=== PATIENT | male | born 1980 | race Caucasian/White ===

== ENCOUNTER 2017-09-06 16:16 | Inpatient (IN) | payer BC ==
--- NOTE | 2017-09-06 16:21 | PDOC ---
Attending Attestation - HPI HPI: 09/06/17 17:53 CC: sudden onset of AFIB today The patient is a 36 year old male with a significant past medical history of anxiety and disc herniation (C6,C7), who presents for evaluation of heart racing sensation today about 2 hours prior to ED arrival. The patient reports receiving a hydrocortisone injection yesterday to his cervical region. He states he developed a heart racing sensation prior to the injection, which "settled down" prior to receiving the injection. He states he developed the sensation of a racing heart rate suddenly earlier this afternoon, waited an hour , and returned to [facility] where he was found to be in "AFib and RVR to the 160s ". He reports having a noral echo and stress test about a year ago at [facility]. He states he has a female doctor at [facility], but can not recall her name and states he has not seen her "in a while". He denies Fevers, chills, SOB, chest pain, nausea, vomiting, abdominal pain, or changes with urination or bowel movements. - Physicial Exam PE: 09/06/17 17:58 ROS: A complete review of 10 out of 10 review of systems is taken and is negative apart from what is previously mentioned in the HPI. Physical Exam Vitals: Triage vital signs reviewed General Appearance: No acute distress, well nourished, well developed Head: Atraumatic Eyes: Pupils equal reactive round, extraocular movement intact Neck: Supple; No nuchal rigidity Chest Wall: Nontender Cardiac: (+) irregularly irregular, no murmurs, no rubs, no gallops Lungs: Clear to auscultation bilateral, good air movement bilaterally Abdomen: Soft, nondistended, normal bowel sounds, nontender to palpation Rectal: Exam deferred Extremities: Full range of motion to all extremities, no cyanosis, clubbing, or edema Skin: Warm and dry, no rashes or lesions, no rash, no petechiae Neuro: AOX3; Cranial Nerves 2-12 grossly intact, Strength intact to all extremities, Sensation intact to all extremities, gait normal Psych: Normal mood, normal affect - Medical Decision Making 09/06/17 18:06 The patient is a 36 year old male with a significant past medical history of anxiety and herniation of C6C7 who presents with sudden onset of AFib today at [facility]. Plan: EKG, CXR, medications, reassess 09/06/17 17:47 Dr. Gomez was called via phone answering service. I have been made aware Dr. Melendez is covering Dr. Gomez and a page was sent requesting a call back for doctor to doctor consult. 09/06/17 18:21 Dr. Melendez, covering for Dr. Gomez was paged a 2nd time requesting a call back for doctor to doctor consult. 09/06/17 18:28 Dr. Melendez returned the call and discussed the case with Dr. Grigsby. Documentation prepared by Eli Sommer, acting as certified medical coder for Alpesh Burks MD, <Eli Sommer - Last Filed: 09/06/17 20:03> - Resident Resident Name: Ming Grigsby - ED Attending Attestation I have performed the following: I have examined & evaluated the patient, The case was reviewed & discussed with the resident, I agree w/resident's findings & plan, Exceptions are as noted - Critical Care Time Total Critical Care Time: 35 Critical Care Statement: The care of this patient involved high complexity decision making to prevent further life threatening deterioration of the patient 's condition and/or to evaluate & treat vital organ system(s) failure or risk of failure. - Medical Decision Making EKG demonstrates A. fib with RVR T-wave inversions inferior laterally 37 no past medical history new-onset A. fib started approximately 2 hours prior to arrival. Patient felt palpitations. Treated with IV diltiazem 20mg and 30mg PO Cardizem now currently rate controlled but still in atrial fibrillation. Case discussed with cardiology we' ll treat with aspirin admitt overnight for further management. A portion of this note was documented by scribe services under my direction I reviewed the details of note within reason and agree with the documentation with the following case summary and management plan written by me 09/06/17 23:44 <Alpesh Burks - Last Filed: 09/06/17 23:44> Heart Score/ECG Review - ECG Intrepretation Comment:: 09/06/17 20:04 EKG performed at 16:26 demonstrates rate of 150bpm, rhythm of Afib, axis equal to normal. Additional findings include: consider inferior ischemia, T wave inversions laterally, No ST elevations. <Eli Sommer - Last Filed: 09/06/17 20:03>
[2017-09-06] MEDS ORDERED: dilTIAZem HCL 30 MG TABLET (FP) PO ONE (16:31)
[2017-09-06] MEDS ORDERED: dilTIAZem HCL 50 MG/10 ML - 10 ML VIAL IVPUSH ONE (16:31)
[2017-09-06] MEDS ORDERED: dilTIAZem HCL 30 MG TABLET (FP) ONE (16:49)
[2017-09-06] MEDS ORDERED: dilTIAZem HCL 125 MG/25 ML - 25 ML VIAL ONE (16:50)
--- NOTE | 2017-09-06 16:51 | PDOC ---
History of Present Illness - General Chief Complaint: Palpitations Stated Complaint: RAPID HEART RATE Time Seen by Provider: 09/06/17 16:18 - History of Present Illness Initial Comments: 09/06/17 16:46 The patient is a 36 year old male with a history of anxiety and disc herniation who presents for evaluation of palpitations and rapid heart rate. The patient reports that he was received a hydrocortisone injection 1 day ago and then began experiencing the sensation of a racing heart rate earlier this morning. He initially presented to [facility] where he had his injection performed and was found to be in afib with RVR with a HR in 160s prompting his presentation to the ED today. He denies Fevers, chills, SOB, chest pain, nausea, vomiting, abdominal pain, or changes with urination or bowel movements. Past History - Past Medical History Allergies/Adverse Reactions: Allergies Allergy/AdvReac Type Severity Reaction Status Date / Time No Known Allergies Allergy Verified 09/06/17 16:35 Home Medications: Ambulatory Orders Gabapentin 300 mg PO TID 09/06/17 COPD: No Psychiatric Problems: No Other medical history: c7 herniated disc - Suicide/Smoking/Psychosocial Hx Smoking History: Current some day smoker Have you smoked in the past 12 months: Yes Number of Cigarettes Smoked Daily: 2 If you are a former smoker, when did you quit?: SMOKES WHEN DRINKS Information on smoking cessation initiated: No 'Breaking Loose' booklet given: 04/20/16 Hx Alcohol Use: No Drug/Substance Use Hx: No Substance Use Type: Alcohol Review of Systems - Review of Systems Comments:: 09/06/17 16:48 Constitutional: No fevers, chills, fatigue, malaise HEENT: No Rhinorrhea, nasal congestion, visual changes Cardiovascular: Palpitations. No chest pain, syncope, lightheadedness Respiratory: No Cough, SOB, Hemoptysis, Gastrointestinal: No Abdominal pain, Nausea, Vomiting, Constipation, Diarrhea, Melena Genitourinary: No Dysuria, Frequency, Urgency, Hesitancy, Hematuria, Flank pain Musculoskeletal: No Myalgia, arthralgia Skin: No rashes, itching, bruising, pallor Neurologic: No Headache, Dizziness, Numbness, Weakness, or Tingling Psychiatric: No Hallucinations. No SI or HI *Physical Exam - Vital Signs Last Vital Signs Temp Pulse Resp BP Pulse Ox 98.0 F 150 H 18 148/91 100 09/06/17 16:23 09/06/17 16:23 09/06/17 16:23 09/06/17 16:23 09/06/17 16:23 - Physical Exam Comments: 09/06/17 16:49 General Appearance: Nourished. No Apparent Distress HEENT: EOMI, HARJEET. No Pharyngeal Erythema, Tonsillar Exudate, Tonsillar Erythema Neck: No Cervical Lymphadenopathy Respiratory/Chest: Lungs Clear, Normal Breath Sounds. No Crackles, Rales, Rhonchi, Wheezing Cardiovascular: Tachycardic and irregularly irregular. No Murmur, Gallops, Rubs Gastrointestinal/Abdominal: Normal Bowel Sounds, Soft. No Guarding, Rebound, Tenderness Musculoskeletal: No CVA Tenderness Extremity: Normal Capillary Refill Integumentary: Normal Color, Dry, Warm Neurologic: Fully Oriented, Alert, Normal Mood/Affect, Normal Response, Heart Score/ECG Review #1 ECG reviewed & interpreted by me at: 16:50 (Afib with RVR with a HR of 150. T- wave inversions in the inferior lateral leads) General ECG Interpretation: Normal Intervals, No acute ischemic changes #2 ECG reviewed & interpreted by me at: 18:05 (Afib with a HR of 100) General ECG Interpretation: Normal Intervals, No acute ischemic changes ED Treatment Course - LABORATORY CBC & Chemistry Diagram: 09/06/17 16:49 09/06/17 16:49 - RADIOLOGY Radiology Studies Ordered: Category Date Time Status CHEST X-RAY PORTABLE* [RAD] Stat Radiology 09/06/17 16:30 Taken Medical Decision Making - Medical Decision Making 09/06/17 16:51 The patient is a 36 year old male with a history of anxiety and disc herniation who presents for evaluation of palpitations and rapid heart rate. Given the patient's EKG here in the ed and physical exam, it is likely the patient's symptoms are due to afib with RVR. We will obtain a cbc, cmp, tsh, troponin, chest plain film, coags to evaluate for possible etiologies that put the patient into afib with RVR. In the meantime we will treat the patient with 30mg PO cardizem, and 20mg of IV cardizem. We will continue to monitor and reassess. 09/06/17 18:22 CBC, cmp, troponin, coags are unremarkable. Chest plain film is unremarkable. The patient's rate is now 90s after medications however still in afib. The patient will require admission for further management of his condition given his new onset afib that remains persistent. We discussed the results and the plan with the patient who voiced understanding and is agreeable with the plan. *DC/Admit/Observation/Transfer Diagnosis at time of Disposition: Palpitations, Atrial fibrillation with RVR - Discharge Dispostion Condition at time of disposition: Stable Admit: Yes - Referrals - Patient Instructions - Post Discharge Activity
[2017-09-06 17:02] LABS: BASO % 0.6 % (0-2.0); EOS % 0.3 % (0-4.5); HEMATOCRIT 44.8 % (35.4-49); HEMOGLOBIN 15.4 GM/dL (11.7-16.9); LYMPH % 29.9 % (8-40); MCH 31.5 pg (25.7-33.7); MCHC 34.4 g/dl (32.0-35.9); MEAN CELL VOLUME 91.6 fl (80-96); MEAN PLT VOLUME 8.8 fl (7.5-11.1); MONO % 10.4 % (3.8-10.2); NEUT % 58.8 % (42.8-82.8); PLATELET COUNT 238 K/MM3 (134-434); RBC 4.89 M/mm3 (4.00-5.60); RDW 12.5 % (11.9-15.9); WHITE BLOOD COUNT 10.8 K/mm3 (4.0-10.0)
[2017-09-06 17:31] LABS: ALBUMIN 4.3 g/dl (3.4-5.0); ANION GAP 7 (8-16); BILIRUBIN,TOTAL 0.4 mg/dL (0.2-1.0); BLOOD UREA NITROGEN 13 mg/dL (7-18); CALCIUM 8.6 mg/dL (8.5-10.1); CHLORIDE 106 mmol/L (98-107); CO2 28 mmol/L (21-32); CREATININE 0.9 mg/dL (0.7-1.3); GLUCOSE,RANDOM 86 mg/dL (74-106); POTASSIUM 3.7 mmol/L (3.5-5.1); SGOT/AST 17 U/L (15-37); SGPT/ALT 26 U/L (12-78); SODIUM 141 mmol/L (136-145); TOT PROT 7.2 g/dl (6.4-8.2)
[2017-09-06 17:39] LABS: ALK PHOS 71 U/L (45-117)
[2017-09-06 17:47] LABS: INR 0.94 (0.82-1.09); PROTHROMBIN TIME (PATIENT) 10.6 SEC (9.98-11.88)
[2017-09-06 17:50] LABS: ACTIVATED PTT 28.6 SECONDS (26.9-34.4)
[2017-09-06] MEDS ORDERED: ASPIRIN 325 MG ENTERIC COATED TABLET (FP) PO ONE (18:05)
[2017-09-06] MEDS ORDERED: ASPIRIN 325 MG TABLET ONE (18:18)
--- NOTE | 2017-09-06 19:00 | PN ---
Teaching Attending Note Name of Resident: Agnieszka Rojo ATTENDING PHYSICIAN STATEMENT I saw and evaluated the patient. I reviewed the resident's note and discussed the case with the resident. I agree with the resident's findings and plan as documented. SUBJECTIVE: 36 M with pmhx. of anxiety and disc herniation who presents with rapid heart rate. State she felt his heart racing, this am. States he went to [facility] (due tohim having a Cortisone injection there one vincent go,) there they found him to have a heart rate of 160. States he was told to present to ED. Denies any chest pain, pressure or shortness of breath. No N,V,D. No headaches, dizziness, or lightheadedness. OBJECTIVE: Physical: VS: Vital Signs Period Temp Pulse Resp BP Sys/[place] Pulse Ox Last 24 Hr 98.0 F 150 18 148/91 100 GEN: NAD, Resting in bed, AAoX3 HEENT: NCAT, PERRL, throat without erythema or exudates CARD: RRR S1, S2 RESP: CTAB ABD: BSx4, NTD to palpation EXT: - C/C/E CBCD WBC 10.8 K/mm3 (4.0-10.0) H 09/06/17 16:49 RBC 4.89 M/mm3 (4.00-5.60) 09/06/17 16:49 Hgb 15.4 GM/dL (11.7-16.9) 09/06/17 16:49 Hct 44.8 % (35.4-49) 09/06/17 16:49 MCV 91.6 fl (80-96) 09/06/17 16:49 MCHC 34.4 g/dl (32.0-35.9) 09/06/17 16:49 RDW 12.5 % (11.9-15.9) 09/06/17 16:49 Plt Count 238 K/MM3 (134-434) D 09/06/17 16:49 MPV 8.8 fl (7.5-11.1) 09/06/17 16:49 CMP Sodium 141 mmol/L (136-145) 09/06/17 16:49 Potassium 3.7 mmol/L (3.5-5.1) 09/06/17 16:49 Chloride 106 mmol/L (98-107) 09/06/17 16:49 Carbon Dioxide 28 mmol/L (21-32) 09/06/17 16:49 Anion Gap 7 (8-16) L 09/06/17 16:49 BUN 13 mg/dL (7-18) 09/06/17 16:49 Creatinine 0.9 mg/dL (0.7-1.3) 09/06/17 16:49 Creat Clearance w eGFR > 60 (>60) 09/06/17 16:49 Random Glucose 86 mg/dL (74-106) 09/06/17 16:49 Calcium 8.6 mg/dL (8.5-10.1) 09/06/17 16:49 Total Bilirubin 0.4 mg/dL (0.2-1.0) 09/06/17 16:49 AST 17 U/L (15-37) 09/06/17 16:49 ALT 26 U/L (12-78) 09/06/17 16:49 Alkaline Phosphatase 71 U/L (45-117) 09/06/17 16:49 Total Protein 7.2 g/dl (6.4-8.2) 09/06/17 16:49 Albumin 4.3 g/dl (3.4-5.0) 09/06/17 16:49 CARDIAC ENZYMES Creatine Kinase 75 IU/L (39-308) 09/06/17 16:49 Troponin I < 0.02 ng/ml (0.00-0.05) 09/06/17 16:49 CXR- No Acute Process ASSESSMENT AND PLAN: 36 M with pmhx. of anxiety and disc herniation who presents with rapid heart rate, being admitted for A-Fib w RVR 1.) A-Fib w RVR - Trend Trop/Ekg - Echo - C/W Cardizem - [id number] - Cardio on Consult - Check. TSH 2.) Hx. Of Cocaine use - Utox - Avoid BB 3.) DVt Ppx - Heparin [address]
--- NOTE | 2017-09-06 19:34 | HP ---
CHIEF COMPLAINT: Palpitations and rapid heart rate x 2 days PCP: Dr Rory Napoles-for epidural injection Dr Janae Couch- Neurol [facility] Cardiol- [facility]- Name unknown HISTORY OF PRESENT ILLNESS: The Pt is a 36 M with PMHx of disc herniation (C6, C7, lumbar prolapse) presenting with a hx of palpitations and rapid RVR x 2 days. Pt noted palpitations yesterday while receiving hydrocort epidural injection for the disc herniation. The palpitations started after injection of the needle, prior to the medication being given. Patient was able to relax by breathing slowly after which he proceeded to receive the medication. He noted some lightheadedness, but no seizures, no headaches, no convulsions and no weakness of any part of his body. He had a snack right after the episode, since he did not have breakfast, but did not note any diaphoresis, chest pain or tremors. No leg swelling, weight gain or SOB. Today, prior to his ingestion of coffee, pt had another episode of palpitations. He called [facility], was asked to come in, had an EKG done that showed afib with RVR on EKG today-HR- 150/min and was BIBEMS to [facility]. Patient noted irregular heart rate in the past, but no fast heart beat about 2 years ago, for which he saw a cane flume watchman and had an out pt stress test and ECHO done that did not show any abnormality - per pt but has not followed up since. Patient denies any past medical hx including hypertension or diagnosed anxiety disorder and said he snorted cocaine in the past, last use 2015. Previous [facility] records document elevated blood pressure. He says he drinks alcohol (wine ) socially over weekends and also smokes socially 5 cigs/week. No fevers, cough, change in urinary or bowel habits. While at the ER today, he received 30mg PO of cardizem and 20mg Iv of cardizem and with rate control down to 90/min. ER course was notable for: (1) ASA 325, 30mg PO of cardizem and 20mg Iv of cardizem (2)EKG 08/06/17 (4.26pm)- Afib w/RVR, consider inferior ischemia, RR-150/min, QTc -470 (3)EKG 08/06/17 (5.59pm)- Afib , HR-100/min, Nonspecific ST and T wave abnormality (4) CBC, CMP, TSH-1.73, PT/INR, Trops <0.02 (5) CXR- No acute process Recent Travel: No PAST MEDICAL HISTORY: disc herniation PAST SURGICAL HISTORY: None Social History: Smokin cigs/week X 10 years Alcohol:3-4 glasses of wine/week Drugs: marijuana (last use 1.5yrs ago); Cocaine (2 years ago) Family History: Sister-alcoholic with lupus from sepsis (2013) Father- Manic-depressive- committed suicide (2001) Mother- Left him when he was 5yrs old, heard when he was 12yrs old that she of HIV Allergies No Known Allergies Allergy (Verified 09/06/17 16:35) HOME MEDICATIONS: Home Medications Medication Instructions Recorded Gabapentin 300 mg PO TID 09/06/17 REVIEW OF SYSTEMS CONSTITUTIONAL: Absent: fever, chills, diaphoresis, generalized weakness, malaise, loss of appetite, weight change HEENT: Absent: rhinorrhea, nasal congestion, throat pain, throat swelling, difficulty swallowing, mouth swelling, ear pain, eye pain, visual changes CARDIOVASCULAR: palpitations+, irregular heart rate+, lightheadedness+, Absent: chest pain, syncope, peripheral edema RESPIRATORY: Absent: cough, shortness of breath, dyspnea with exertion, orthopnea, wheezing, stridor, hemoptysis GASTROINTESTINAL: Absent: abdominal pain, abdominal distension, nausea, vomiting, diarrhea, constipation, melena, hematochezia GENITOURINARY: Absent: dysuria, frequency, urgency, hesitancy, hematuria, flank pain, genital pain MUSCULOSKELETAL: Absent: myalgia, arthralgia, joint swelling, back pain, neck pain SKIN: Absent: rash, itching, pallor HEMATOLOGIC/IMMUNOLOGIC: Absent: easy bleeding, easy bruising, lymphadenopathy, frequent infections ENDOCRINE: Absent: unexplained weight gain, unexplained weight loss, heat intolerance, cold intolerance NEUROLOGIC: Absent: headache, focal weakness or paresthesias, dizziness, unsteady gait, seizure, mental status changes, bladder or bowel incontinence PSYCHIATRIC: Absent: anxiety, depression, suicidal or homicidal ideation, hallucinations. PHYSICAL EXAMINATION Vital Signs - 24 hr 09/06/17 16:23 Temperature 98.0 F Pulse Rate 150 H Respiratory 18 Rate Blood Pressure 148/91 O2 Sat by Pulse 100 Oximetry (%) Vital Signs Temp 98.0 F 09/06/17 16:23 Pulse 105 H 09/06/17 20:24 Resp 18 09/06/17 20:24 BP 131/74 09/06/17 20:24 Pulse Ox 99 09/06/17 20:24 Intake & Output 09/05/17 09/06/17 09/06/17 23:59 11:59 23:59 Weight 99.79 kg Other: Height 1.88 m Body Mass Index (BMI) 28.2 GENERAL: Awake, alert, and fully oriented, in no acute respiratory distress. HEAD: Normal with no signs of trauma. EYES: Pupils equal, round and reactive to light, extraocular movements intact, sclera anicteric, conjunctiva clear. EARS, NOSE, THROAT: Ears normal, nares patent, oropharynx clear without exudates. Moist mucous membranes. NECK: Normal range of motion, supple without lymphadenopathy, or JVD. LUNGS: Breath sounds equal, clear to auscultation bilaterally. No wheezes, and no crackles. HEART: Irregular rhythm, S1 and S2 without murmur, rub or gallop. ABDOMEN: Soft, nontender, not distended, normoactive bowel sounds, no guarding, no rebound, no masses. No hepatomegaly or splenomegaly. MUSCULOSKELETAL: Normal range of motion at all joints. No bony deformities or tenderness. No CVA tenderness. UPPER EXTREMITIES: 2+ pulses, warm, well-perfused. No cyanosis. No clubbing. No peripheral edema. LOWER EXTREMITIES: 2+ pulses, warm, well-perfused. No calf tenderness. No peripheral edema. NEUROLOGICAL: No facial droop, no tremors. Normal speech. Gait not observed PSYCHIATRIC: Cooperative. Good eye contact. Appropriate mood and affect. Laboratory Results - last 24 hr 09/06/17 09/06/17 09/06/17 16:49 16:49 17:20 WBC 10.8 H RBC 4.89 Hgb 15.4 Hct 44.8 MCV 91.6 MCH 31.5 MCHC 34.4 RDW 12.5 Plt Count 238 D MPV 8.8 Neutrophils % 58.8 Lymphocytes % 29.9 D Monocytes % 10.4 H Eosinophils % 0.3 Basophils % 0.6 PT with INR 10.60 INR 0.94 PTT (Actin FS) 28.6 Sodium 141 Potassium 3.7 Chloride 106 Carbon Dioxide 28 Anion Gap 7 L BUN 13 Creatinine 0.9 Creat Clearance w eGFR > 60 Random Glucose 86 Calcium 8.6 Total Bilirubin 0.4 AST 17 ALT 26 Alkaline Phosphatase 71 Creatine Kinase 75 Troponin I < 0.02 Total Protein 7.2 Albumin 4.3 TSH 1.73 ASSESSMENT/PLAN: Pt is a 36 M with PMHx of disc herniation (C6, C7, lumbar prolapse) presenting with a hx of palpitations and rapid RVR x 2 days found to have Afib w/RVR, RR- 150/min, QTc-470 on presentation. Paroxysmal Afib with RVR R/O persistent afib: Could be metabolic (due to stress) Previous hx of irregular HR- cane flume watchman unknown, To retrieve Out px records if possible Rate controlled with 30mg PO of cardizem and 20mg Iv of cardizem No evidence of haemodynamic instbility at this time [id number] Score- 1 (based on hospital records of HTN) ASA 81 mg daily Continue Diltiazem 30mg Q6H PO Avoid Beta blockers for now with hx of cocaine use in past Utox TSH- 1.73 Trops <0.02 Repeat trops EKG in am ECHO Cardiology consult- Dr Melendez Cardiac monitoring Mg -1.9 CMP- replete lytes as needed HTN: Monitor on Cardizem Disc herniation: Resume Gabapentin 300mg tid FEN: Oral fluids as tolerated Monitor lytes and replete as needed Low sodium diet Prophylaxis: Heparin SQ 5000iu tids Dispo: Tele Visit type - Emergency Visit Emergency Visit: Yes ED Registration Date: 09/06/17 Care time: The patient presented to the Emergency Department on the above date and was hospitalized for further evaluation of their emergent condition. - New Patient This patient is new to me today: Yes Date on this admission: 09/07/17 - Critical Care Critical Care patient: No
[2017-09-06] MEDS ORDERED: GABAPENTIN 300 MG CAPSULE (FP) PO ONE (19:47)
[2017-09-06] MEDS ORDERED: GABAPENTIN 100 MG CAPSULE (FP) ONE (20:25)
[2017-09-06] MEDS: GABAPENTIN 300 MG CAPSULE (FP) PO SCH (22:51)
[2017-09-07] MEDS: dilTIAZem HCL 30 MG TABLET (FP) PO SCH ×2 (00:24→06:37)
[2017-09-07] MEDS ORDERED: HEPARIN NA (PORCINE) 5,000 UNITS/ML 1ML VIAL SQ SCH ×2 (06:00)
[2017-09-07] MEDS: GABAPENTIN 300 MG CAPSULE (FP) PO SCH ×3 (06:37→22:26)
[2017-09-07 07:55] LABS: BASO % 0.6 % (0-2.0); EOS % 1.2 % (0-4.5); HEMATOCRIT 46.1 % (35.4-49); HEMOGLOBIN 15.7 GM/dL (11.7-16.9); LYMPH % 45.3 % (8-40); MCH 31.1 pg (25.7-33.7); MEAN CELL VOLUME 91.5 fl (80-96); MONO % 8.7 % (3.8-10.2); NEUT % 44.2 % (42.8-82.8); PLATELET COUNT 224 K/MM3 (134-434); RBC 5.04 M/mm3 (4.00-5.60); RDW 12.2 % (11.9-15.9); WHITE BLOOD COUNT 9.8 K/mm3 (4.0-10.0)
[2017-09-07 08:14] LABS: INR 0.96 (0.82-1.09); PROTHROMBIN TIME (PATIENT) 10.8 SEC (9.98-11.88)
[2017-09-07 08:23] LABS: ANION GAP 7 (8-16); BLOOD UREA NITROGEN 15 mg/dL (7-18); CALCIUM 8.6 mg/dL (8.5-10.1); CHLORIDE 105 mmol/L (98-107); CO2 29 mmol/L (21-32); CREATININE 0.9 mg/dL (0.7-1.3); GLUCOSE,RANDOM 86 mg/dL (74-106); PHOSPHOROUS 4.3 mg/dL (2.5-4.9); SGOT/AST 16 U/L (15-37); SGPT/ALT 29 U/L (12-78); SODIUM 141 mmol/L (136-145)
[2017-09-07 08:27] LABS: ALK PHOS 61 U/L (45-117); BILIRUBIN,TOTAL 0.5 mg/dL (0.2-1.0); TOT PROT 6.8 g/dl (6.4-8.2)
[2017-09-07] MEDS: ASPIRIN COATED 81 MG TABLET.EC PO SCH (09:32)
[2017-09-07] MEDS ORDERED: dilTIAZem HCL 50 MG/10 ML - 10 ML VIAL IVPUSH ONE (09:33)
--- NOTE | 2017-09-07 09:35 | CON.CARD ---
Consult Consult Specialty:: Cardiology Referred by:: Hospitalist Reason for Consultation:: Afib with RVR - History of Present Illness Chief Complaint: palpitations, sent in for afib History of Present Illness: 36 year old man with spinal disc disease, had C/T spine injection 2 days ago, developed palpitations not feeling well yesterday found to be in afib with RVR. Pt also admits to use cocaine in the past few days. He saw a estimate clerk approx 1 year ago for palpitations, had a reportedly normal stress test and echo and was planned for a holter monitor but did not go through with it. he was seen and examined in the ER in [place]. still feeling palpitations despite HR 90 -100bpm currently. no chest pain, sob, lightheadedness, dizziness, syncope, or near syncope. no pnd, orthopnea, or LE edema. - History Source History Provided By: Patient, Medical Record Limitations to Obtaining History: No Limitations - Past Medical History Musculoskeletal: Yes: Other (chronic back pain) - Alcohol/Substance Use Hx Alcohol Use: No History of Substance Use: reports: Cocaine - Smoking History Smoking history: Current some day smoker Have you smoked in the past 12 months: Yes Aproximately how many cigarettes per day: 2 If you are a former smoker, when did you quit?: SMOKES WHEN DRINKS - Social History ADL: Independent History of Recent Travel: No Home Medications - Allergies Allergies/Adverse Reactions: Allergies Allergy/AdvReac Type Severity Reaction Status Date / Time No Known Allergies Allergy Verified 09/06/17 16:35 - Home Medications Home Medications: Ambulatory Orders Gabapentin 300 mg PO TID 09/06/17 Family Disease History - Family Disease History Family History: Denies Review of Systems - Review of Systems Constitutional: denies: No Symptoms, Chills, Diaphoresis, Fever, Lethargy, Loss of Appetite, Malaise, Night Sweats, Unintentional Wgt. Loss, Weakness, Other Eyes: denies: No Symptoms, Blind Spots, Blurred Vision, Double Vision, Eye Pain , Floaters, Photophobia, Recent Change in Vision, Other HENT: denies: No Symptoms, Difficult Swallowing, Ear Discharge, Ear Pain, Epistaxis, Gingival Bleeding, Hearing Loss, Mouth Swelling, Nasal Congestion, Ocular Prosthesis, Throat Pain, Toothache, Ringing in Ears, Other Neck: denies: No Symptoms, Decreased ROM, Lumps, Pain on Movement, Stiffness, Swollen Glands, Tenderness, Other Cardiovascular: reports: Palpitations. denies: No Symptoms, Chest Pain, Edema, Shortness of Breath, Other Respiratory: denies: No Symptoms, Cough, Exercise Intolerance, Hemoptysis, Orthopnea, PND, Snoring, SOB, SOB on Exertion, Wheezing, Other Gastrointestinal: denies: No Symptoms, Abdominal Pain, Bloating, Constipation, Diarrhea, Dysphagia, Indigestion, Melena, Nausea, Rectal Bleeding, Vomiting, Vomiting Blood, Other Genitourinary: denies: No Symptoms, Burning, Discharge, Dysuria, Flank Pain, Frequency, Hematuria, Incontinence, Lesions, Menses, Pain, Testicular Mass, Testicular Pain, Testicular Swelling, Urgency, Vaginal Bleeding, Other Breasts: denies: No Symptoms Reported, See HPI, Breast Implants, Discharge from Nipple, Lumps, Pain, Skin Changes, Other Musculoskeletal: denies: No Symptoms, Back Pain, Crepitus, Decreased ROM, Extremity Pain, Joint Pain, Joint Swelling, Muscle Pain, Muscle Cramps, Muscle Weakness, Other Integumentary: denies: No Symptoms, Blister, Bruising, Change in Color, Eczema, Erythema, Incision, Lesions, Lump, Pallor, Pruritis, Rash, Wound, Other Neurological: denies: No Symptoms, Change in LOC, Change in Speech, Confusion, Dizziness, Headache, Incoordination, Numbness, Parasthesia, Pre-Existing Deficit , Seizure, Syncope, Tremors, Unsteady Gait, Weakness, Other Endocrine: denies: No Symptoms, Excessive Sweating, Flushing, Increased Hunger, Increased Thirst, Intolerance to Cold, Intolerance to Heat, Unexplained Weight Gain, Unexplained Weight Loss, Other Hematology/Lymphatic: denies: No Symptoms, Easily Bruised, Excessive Bleeding, Swollen Glands, Other Psychiatric: denies: No Symptoms, Altered Sleep Pattern, Anxiety, Depression, Hallucinations, Panic, Paranoia, Suicidal, Other Vital Signs: Vital Signs Temperature 97.7 F 09/07/17 08:41 Pulse Rate 88 09/07/17 08:41 Respiratory Rate 17 09/07/17 08:41 Blood Pressure 132/98 09/07/17 08:41 O2 Sat by Pulse Oximetry (%) 100 09/07/17 08:41 Constitutional: Yes: Well Nourished, No Distress, Calm Eyes: Yes: WNL, Conjunctiva Clear, EOM Intact, PERRL HENT: Yes: WNL, Atraumatic, Normocephalic Neck: Yes: WNL, Supple, Trachea Midline Respiratory: Yes: WNL, Regular, CTA Bilaterally. No: Rales, Rhonchi, SOB, Wheezes Gastrointestinal: Yes: WNL, Normal Bowel Sounds, Soft. No: Distention, Tenderness Renal/: Yes: WNL Cardiovascular: Yes: Pulse Irregular. No: Regular Rate and Rhythm, Bradycardia , Tachycardia, Gallop, Rub, Varicosities JVD: No Carotid Bruit: No PMI: Non-Displaced Heart Sounds: Yes: S1, S2. No: Split S2, S3, S4, Clicks, Gallop, Rub, Bruit Murmur: No: Systolic Murmur, Diastolic Murmur Musculoskeletal: Yes: Back Pain Extremities: Yes: WNL Edema: No Peripheral Pulses WNL: Yes Peripheral Pulses: 2+ Left Doralis Pedis, 2+ Right Dorsalis Pedis Integumentary: Yes: WNL Neurological: Yes: WNL, Alert, Oriented, Cran Nerves II-XII Intact ...Motor Strength: WNL Psychiatric: Yes: WNL, Alert, Oriented - Other Data Labs, Other Data: CBC, BMP 09/07/17 06:00 09/07/17 06:00 INR, PTT INR 0.96 (0.82-1.09) 09/07/17 06:00 Troponin, BNP 09/06/17 09/07/17 09/07/17 16:49 01:15 06:00 Troponin I < 0.02 < 0.02 < 0.02 Troponin, BNP 09/06/17 09/07/17 09/07/17 16:49 01:15 06:00 Troponin I < 0.02 < 0.02 < 0.02 ekg-1 Afib RVR 150bpm, T inversion II, III, aVF, 2. Afib 100bpm, nonspecific St abnl Echo: Pending Imaging - Results Chest X-ray: Report Reviewed, Image Reviewed EKG: Report Reviewed, Image Reviewed Other: Report Reviewed, Image Reviewed (tele-Afib, HR 70-100bpm at rest, up to 130-150bpm with minimal movement/exertion) Assessment/Plan 36 year old man with spinal disc disease, had C/T spine injection 2 days ago, developed palpitations not feeling well yesterday found to be in afib with RVR. Pt also admits to use cocaine in the past few days. He saw a estimate clerk approx 1 year ago for palpitations, had a reportedly normal stress test and echo and was planned for a holter monitor but did not go through with it. he was seen and examined in the ER in [place]. still feeling palpitations despite HR 90 -100bpm currently. no chest pain, sob, lightheadedness, dizziness, syncope, or near syncope. no pnd, orthopnea, or LE edema. Afib with RVR on admission-newly diagnosed, possibly occurred in past with palpitations but never confirmed -HR still above goal with minimal exertion -given extra cardizem this am IV and cardizem cd 120mg x1 -then given extra dose of cardizem cd 120mg later in am due to continued uncontrolled HR -CHADS-2 score 0, will cont ASA 81mg alone for now -discussed option of JOVANI/cardioversion, but would prefer to monitor for spontaneous conversion after rate control before going through with procedure -additionally in light of cocaine use this may have precipitated the afib and would prefer until that clears out of his system as well as unable to use bblockers due to this -f/up echo to evaluate for structural abnormalities, including LA size -if pt converts to NSR on his own or if his HR is well controlled would be acceptable for discharge home with a plan for very close outpatient f/up and if remains in afib would then consider JOVANI/DCCV at that time, if DCCV done would require full AC for a least 1 month
[2017-09-07] MEDS ORDERED: dilTIAZem HCL 125 MG/25 ML - 25 ML VIAL ONE (09:37)
--- NOTE | 2017-09-07 09:37 | PN ---
Physical Exam: SUBJECTIVE: Patient seen and examined Patient is comfortable with no acute distress. OBJECTIVE: Vital Signs Temperature 97.7 F 09/07/17 08:41 Pulse Rate 88 09/07/17 08:41 Respiratory Rate 17 09/07/17 08:41 Blood Pressure 132/98 09/07/17 08:41 O2 Sat by Pulse Oximetry (%) 100 09/07/17 08:41 GENERAL: The patient is awake, alert, and fully oriented, in no acute distress. HEAD: Normal with no signs of trauma. EYES: PERRL, extraocular movements intact, sclera anicteric, conjunctiva clear. ENT: Ears normal, oropharynx clear without exudates, moist mucous membranes. NECK: Trachea midline, full range of motion, supple. LUNGS: Breath sounds equal, clear to auscultation bilaterally, no wheezes, no crackles, no accessory muscle use. HEART: Regular rate and rhythm, S1, S2 without murmur, rub or gallop. ABDOMEN: Soft, nontender, nondistended, normoactive bowel sounds, no guarding, no rebound, no hepatosplenomegaly, no masses. EXTREMITIES: 2+ pulses, warm, well-perfused, no edema. NEUROLOGICAL: Cranial nerves II through XII grossly intact. Normal speech, gait is stable. PSYCH: Normal mood, normal affect. SKIN: Warm, dry, normal turgor, no rashes or lesions noted CBCD WBC 9.8 K/mm3 (4.0-10.0) 09/07/17 06:00 RBC 5.04 M/mm3 (4.00-5.60) 09/07/17 06:00 Hgb 15.7 GM/dL (11.7-16.9) 09/07/17 06:00 Hct 46.1 % (35.4-49) 09/07/17 06:00 MCV 91.5 fl (80-96) 09/07/17 06:00 MCHC 34.0 g/dl (32.0-35.9) 09/07/17 06:00 RDW 12.2 % (11.9-15.9) 09/07/17 06:00 Plt Count 224 K/MM3 (134-434) 09/07/17 06:00 MPV 9.0 fl (7.5-11.1) 09/07/17 06:00 CMP Sodium 141 mmol/L (136-145) 09/07/17 06:00 Potassium 4.0 mmol/L (3.5-5.1) 09/07/17 06:00 Chloride 105 mmol/L (98-107) 09/07/17 06:00 Carbon Dioxide 29 mmol/L (21-32) 09/07/17 06:00 Anion Gap 7 (8-16) L 09/07/17 06:00 BUN 15 mg/dL (7-18) 09/07/17 06:00 Creatinine 0.9 mg/dL (0.7-1.3) 09/07/17 06:00 Creat Clearance w eGFR > 60 (>60) 09/07/17 06:00 Random Glucose 86 mg/dL (74-106) 09/07/17 06:00 Calcium 8.6 mg/dL (8.5-10.1) 09/07/17 06:00 Total Bilirubin 0.5 mg/dL (0.2-1.0) D 09/07/17 06:00 AST 16 U/L (15-37) 09/07/17 06:00 ALT 29 U/L (12-78) 09/07/17 06:00 Alkaline Phosphatase 61 U/L (45-117) 09/07/17 06:00 Total Protein 6.8 g/dl (6.4-8.2) 09/07/17 06:00 Albumin 4.0 g/dl (3.4-5.0) 09/07/17 06:00 CARDIAC ENZYMES Creatine Kinase 49 IU/L (39-308) 09/07/17 06:00 Troponin I < 0.02 ng/ml (0.00-0.05) 09/07/17 06:00 Current Medications Generic Name Dose Route Start Last Admin Trade Name Freq PRN Reason Stop Dose Admin Aspirin 81 mg 09/07/17 10:00 09/07/17 09:32 Ecotrin - PO 81 mg DAILY COREY Administration Diltiazem HCl 120 mg 09/07/17 09:32 Cardizem Cd - PO 09/07/17 09:33 ONCE ONE Diltiazem HCl 5 mg 09/07/17 09:33 Cardizem Injection - IVPUSH 09/07/17 09:34 ONCE ONE Gabapentin 300 mg 09/06/17 22:00 09/07/17 06:37 Neurontin - PO 300 mg TID COREY Administration Heparin Sodium (Porcine) 5,000 unit 09/07/17 06:00 09/07/17 06:37 Heparin - SQ 5,000 unit TID COREY Administration Home Medications Medication Instructions Recorded Gabapentin 300 mg PO TID 09/06/17 Laboratory Tests 09/06/17 09/06/17 09/06/17 16:49 16:49 16:49 Phosphorus 2.6 Magnesium 1.9 Troponin I < 0.02 TSH 1.73 09/07/17 09/07/17 01:15 06:00 Phosphorus 4.3 D Magnesium 2.0 Troponin I < 0.02 < 0.02 TSH Urine tox: positive for cocaine CXR- No Acute Process ASSESSMENT AND PLAN: Patient is a 36 M with pmhx. of anxiety and disc herniation who presents with rapid heart rate, being admitted for A-Fib w RVR # A-Fib w RVR on Cardizem continue, patient was about to be discharged developed rapid HR and did not feel well, the discharge was held, Echo, Cardio consult appreciated , TSH 1.73 , 3 sets of trops are neg. # HTN: controlled on Cardizem # Hx of Disc herniation: continue Gabapentin 300mg tid DVt Ppx: Heparin 5000 q8 Visit type - Emergency Visit Emergency Visit: Yes ED Registration Date: 09/06/17 Care time: The patient presented to the Emergency Department on the above date and was hospitalized for further evaluation of their emergent condition. - New Patient This patient is new to me today: No - Critical Care Critical Care patient: No - Discharge Referral Referred to [facility] Med P.C.: No
[2017-09-07] MEDS ORDERED: ASPIRIN 81 MG CHEWABLE TABLETS ONE (09:43)
[2017-09-07 11:08] LABS: METHADONE, UR NEGATIVE ng/ml (CUTOFF=300); OPIATES, URI NEGATIVE ng/ml (CUTOFF=300); PHENCYCLIDINE,URINE NEGATIVE ng/ml (CUTOFF=25); URINE AMPHETAMINES NEGATIVE ng/ml (CUTOFF=500); URINE BARBITURATES NEGATIVE ng/ml (CUTOFF=200); URINE BENZODIAZEPINES NEGATIVE ng/ml (CUTOFF=200)
[2017-09-07 11:09] LABS: COCAINE, UR POSITIVE ng/ml (CUTOFF=300)
[2017-09-07] MEDS ORDERED: GABAPENTIN 100 MG CAPSULE (FP) ONE (14:04)
[2017-09-07 15:43] VITALS: BMI 27.6
--- NOTE | 2017-09-07 17:06 | DS ---
Physical Exam: SUBJECTIVE: Patient seen and examined HOSPITAL COURSE: Date of Admission:09/06/17 Date of Discharge: 09/07/17 Discharge Summary Reason For Visit: PALPITATIONS,AFIB Condition: Stable - Instructions Diet, Activity, Other Instructions: Follow with Licensed Optician within a week period either or . They are different offices, and you were seen by in the hospital. Please take your rate control medication Cardizem CD 240mg po daily and need to continue taking aspirin enteric coated 81mg daily. Abstinence of Cocaine required from your end since can trigger Atrial fibrillation and a heart attack and chest pain. Referrals: Kenyon Melendez MD [Staff Physician] - 1 Week Disposition: HOME - Home Medications Comprehensive Discharge Medication List: Ambulatory Orders Gabapentin 300 mg PO TID 09/06/17 Aspirin Coated [Ecotrin -] 81 mg PO DAILY #30 tablet.ec 09/07/17 Diltiazem Cd [Cardizem Cd -] 240 mg PO DAILY #30 cap.cd.24h 09/07/17
[2017-09-07] MEDS ORDERED: dilTIAZem HCL 50 MG/10 ML - 10 ML VIAL IVPUSH PRN (17:08)
--- NOTE | 2017-09-07 23:14 | EKG ---
Test Reason : Blood Pressure : / mmHG Vent. Rate : 061 BPM Atrial Rate : 241 BPM P-R Int : 000 ms QRS Dur : 096 ms QT Int : 396 ms P-R-T Axes : 000 067 022 degrees QTc Int : 398 ms ATRIAL FIBRILLATION NONSPECIFIC ST AND T WAVE ABNORMALITY ABNORMAL ECG WHEN COMPARED WITH ECG OF 06-SEP-2017 17:59, VENT. RATE HAS DECREASED BY 39 BPM Confirmed by RANJEET ESTRADA, SHELIA ([id number]) on 09/07/2017 11:13:47 PM Referred By: Gisela YANG Confirmed By:SHELIA POLLACK MD
--- NOTE | 2017-09-07 23:19 | EKG ---
Test Reason : Blood Pressure : / mmHG Vent. Rate : 100 BPM Atrial Rate : 105 BPM P-R Int : 000 ms QRS Dur : 086 ms QT Int : 302 ms P-R-T Axes : 000 076 006 degrees QTc Int : 389 ms ATRIAL FIBRILLATION NONSPECIFIC ST AND T WAVE ABNORMALITY ABNORMAL ECG WHEN COMPARED WITH ECG OF 16-MAR-2003 12:57, VENT. RATE HAS DECREASED T WAVE VARIATION Confirmed by SHELIA POLLACK MD ([id number]) on 09/07/2017 11:19:02 PM Referred By: Confirmed By:SHELIA POLLACK MD
--- NOTE | 2017-09-07 23:22 | EKG ---
Test Reason : Blood Pressure : / mmHG Vent. Rate : 150 BPM Atrial Rate : 153 BPM P-R Int : 000 ms QRS Dur : 082 ms QT Int : 298 ms P-R-T Axes : 000 082 -55 degrees QTc Int : 470 ms ATRIAL FIBRILLATION WITH RAPID VENTRICULAR RESPONSE T WAVE ABNORMALITY, CONSIDER INFERIOR ISCHEMIA ABNORMAL ECG WHEN COMPARED WITH ECG OF 16-MAR-2003 12:57, ATRIAL FIBRILLATION HAS REPLACED SINUS RHYTHM VENT. RATE HAS INCREASED BY 64 BPM Confirmed by SHELIA POLLACK MD ([id number]) on 09/07/2017 11:22:23 PM Referred By: Confirmed By:SHELIA POLLACK MD
[2017-09-08] MEDS ORDERED: PT OWN MED DRAWER 7, Y5N ONE (05:15)
[2017-09-08] MEDS: GABAPENTIN 300 MG CAPSULE (FP) PO SCH ×2 (06:18→13:24)
[2017-09-08 10:37] VITALS: BP 116/64; PULSE 74; TEMP 98.2
[2017-09-08] MEDS: ASPIRIN COATED 81 MG TABLET.EC PO SCH (10:38)
--- NOTE | 2017-09-08 11:25 | DS ---
Physical Exam: SUBJECTIVE: Patient seen and examined at bedside. No runs of afib overnight. Heart rate stable. No acute complaints. No chest pain, palpitations, shortness of breath OBJECTIVE: Vital Signs Period Temp Pulse Resp BP Sys/[place] Pulse Ox Last 24 Hr 97.4 F-98.4 F 62-93 12-18 109-127/64-90 96-100 PHYSICAL EXAM GENERAL: The patient is awake, alert, and fully oriented, in no acute distress. LUNGS: Breath sounds equal, clear to auscultation bilaterally, no wheezes, no crackles, no accessory muscle use. HEART: Regular rate and rhythm, S1, S2 without murmur, rub or gallop. ABDOMEN: Soft, nontender, nondistended, normoactive bowel sounds, no guarding, no rebound, no hepatosplenomegaly, no masses. NEUROLOGICAL: Cranial nerves II through XII grossly intact. Normal speech, gait not observed. PSYCH: Normal mood, normal affect. SKIN: Warm, dry, normal turgor, no rashes or lesions noted. HOSPITAL COURSE: Date of Admission:09/06/17 36 year old male with a past medical history of spine injury (C6, C7, lumbar prolapse) admitted to the hospital for palpitations found to be caused by afib in RVR. He started having palpitations when he got hydrocortisone injection for herniated disc. The palpitations started after injection of the needle, prior to the medication being given. He relaxed and still had palpitations, went to [facility] where he had an EKG that showed afib to the 150s. In the ED, patient's tox screen positive for cocaine. Negative for alcohol. He was given 325 of ASA, 30 of PO cardizem and 20 IV cardizem to control rate. Cardiology was consulted. Patient was put on 240mg cardizem as an inpatient and had to increase to 360 of cardizem last night. He spontaneously converted back to sinus rhythm without anti-arrhythmic agents. CHADS-VASc was 0. TSH was 1.73 ( normal). CXR was normal. Patient was discharged with prescriptions for aspirin and cardizem. He was referred for close followup with cardiology. Date of Discharge: 09/08/17 Minutes to complete discharge: 35 Discharge Summary Reason For Visit: PALPITATIONS,AFIB Condition: Stable - Instructions Diet, Activity, Other Instructions: You were treated in the hospital for atrial fibrillation, an abnormal heart rhythm. This was likely caused by use of cocaine and/or alcohol. Medical Recommendations: -Please do not use cocaine again - it is very bad for your heart and can cause heart attacks as well as send you into atrial fibrillation -Try to abstain from alcohol, as alcohol can precipitate atrial fibrillation. Medications: -Because you had an episode of atrial fibrillation, you should be on aspirin. Please take aspirin 81mg by mouth every day. -Continue to take cardizem 360mg by mouth daily to control your heart rate. Have this medication reviewed by the [facility] when you see them as an outpatient Referrals: -Make an appointment with the [facility] Dr. Melendez (who saw you in the hospital), or Dr. Gomez. They are in different offices. You can make an appointment with either. -Make an appointment with your primary care physician within 1 week of discharge -If you experience severe chest pain, palpitations, shortness of breath, fevers , chills, nausea, vomiting, diarrhea, please return to the emergency room immediately Referrals: Kenyon Melendez MD [Staff Physician] - 1 Week Fabian Varghese MD [Staff Physician] - 1 Week Disposition: HOME - Home Medications Comprehensive Discharge Medication List: Ambulatory Orders Gabapentin 300 mg PO TID 09/06/17 Aspirin [ASA -] 81 mg PO DAILY #30 tab.chew 09/08/17 Diltiazem Cd [Cardizem Cd -] 360 mg PO DAILY #30 cap.cd.24h 09/08/17 This patient is new to me today: Yes Date on this admission: 09/08/17 Emergency Visit: No Critical Care patient: No - Discharge Referral Referred to [facility] Med P.C.: No
--- NOTE | 2017-09-08 12:56 | EKG ---
Test Reason : Blood Pressure : / mmHG Vent. Rate : 069 BPM Atrial Rate : 069 BPM P-R Int : 180 ms QRS Dur : 092 ms QT Int : 394 ms P-R-T Axes : 037 062 039 degrees QTc Int : 422 ms NORMAL SINUS RHYTHM NONSPECIFIC ST ABNORMALITY ABNORMAL ECG WHEN COMPARED WITH ECG OF 07-SEP-2017 20:44, NO SIGNIFICANT CHANGE WAS FOUND Confirmed by Mariano Delarosa MD ([id number]) on 09/08/2017 12:56:19 PM Referred By: JORGE WILLIAM DR Confirmed By:Mariano Delarosa MD
--- NOTE | 2017-09-08 12:58 | EKG ---
Test Reason : Blood Pressure : / mmHG Vent. Rate : 077 BPM Atrial Rate : 077 BPM P-R Int : 164 ms QRS Dur : 086 ms QT Int : 382 ms P-R-T Axes : 048 063 038 degrees QTc Int : 432 ms NORMAL SINUS RHYTHM NORMAL ECG WHEN COMPARED WITH ECG OF 07-SEP-2017 09:53, SINUS RHYTHM HAS REPLACED ATRIAL FIBRILLATION Confirmed by Mariano Delarosa MD ([id number]) on 09/08/2017 12:57:53 PM Referred By: Confirmed By:Mariano Delarosa MD
== END 2017-09-08 14:22 | disposition home or self-care (01) | DRG 310 ==
LOC: JER 16:16 → JERBED 19:03 → UNDOADMIN 20:16 → JERBED 20:16 → J4W 09-07 21:14
PROVIDERS: ADMIT Internal Medicine; ATTEND Internal Medicine
DX: I48.91 Unspecified atrial fibrillation (principal); I10 Essential (primary) hypertension; M50.20 Other cervical disc displacement, unspecified cervical region; Z72.0 Tobacco use; F41.9 Anxiety disorder, unspecified
CPT/HCPCS: 36415; 71045-TC-FY; 80053; 80307; 82550; 83735; 84100; 84443; 84484; 85025; 85610; 85730; 93005; 93010; 93306-TC; 99285-25; J1644